=== PATIENT | female | born 1975 | race Caucasian/White ===

== ENCOUNTER 2018-06-22 13:25 | Emergency (ER) | payer BC ==
[~2018-06-22] VITALS: Ht 167.6 cm; Wt 63.6 kg
[~2018-06-22 13:25] MED LIST: ADDERALL10 MG PO; ADDERALL5 MG; AMBIEN CR 12.12.5 MG PO; CALCIUM 600600 M2 PO; CATAPRES 0.1MG0.1 MG PO; CEPHALEXIN500 M1 PO; DESYREL 100MG100 MG PO; EFFEXOR XR37.5 MG/CA PO; KLONOPIN 1MG1 MG PO; LAMICTAL200 MG PO; LEXAPRO 10MG10 MG PO; LEXAPRO20 MG PO; SEROQUEL50 MG PO; TRAZODONE100 MG PO; ULTRAM 50MG TAB50 MG; ULTRAM 50MG TAB50 MG PO; XANAX0.5 MG PO; XANAX2 MG PO; ZYRTEC10 M1 PO
[2018-06-22 13:33] VITALS: TEMP 97.8
[2018-06-22 14:52] LABS: BASO # 0.1 (0.0-0.2); BASO % 1.3 % (0.0-2.0); EOS # 0.3 (0.0-0.7); EOS % 7.1 % (0-4.0); GRAN # 2.3 (1.4-6.5); HEMATOCRIT 40.5 % (37.0-47.0); HEMOGLOBIN 13.3 g/dl (12.5-16.0); LYMPH # 1.3 (1.2-3.4); LYMPH % 29.1 % (20.0-51.0); MEAN CELL VOLUME 88 fl (80.0-100.0); MEAN CORPUSCULAR HEMOGLOBIN 29 pg (27.0-31.0); MEAN CORPUSCULAR HGB CONC 33 g/dl (33.0-37.0); MEAN PLATELET VOLUME 9.2 fl (7.4-10.4); MONO # 0.5 (0.1-0.6); MONO % 10.6 % (1.7-9.3); PLATELET COUNT 225 K/mm3 (130-400); RED BLOOD COUNT 4.58 M/mm3 (4.10-5.30); REDCELL DISTRIBUTION WIDTH-CV 12.6 % (11.5-14.5)
[2018-06-22] MEDS ORDERED: LEXAPRO 10MG10 MG PO (14:58)
[2018-06-22] MEDS ORDERED: NEURONTIN600 MG/TAB PO (14:58)
[2018-06-22] MEDS ORDERED: DESYREL DIVIDO150 M1 PO (14:58)
[2018-06-22] MEDS ORDERED: BIRTH CONTROL (14:59)
[2018-06-22] MEDS ORDERED: ADDERALL20 MG PO (15:00)
[2018-06-22 15:15] LABS: ERYTHROCYTE SEDIMENTATION RATE 1 mm/hr (0-20)
[2018-06-22 16:00] VITALS: BP 115/77; PULSE 86
== END 2018-06-22 16:00 | disposition home or self-care (01) ==
LOC: COL.ER 13:25
PROVIDERS: Physician Assistant
DX: R22.42 Localized swelling, mass and lump, left lower limb (principal); F32.9 Major depressive disorder, single episode, unspecified; Z98.890 Other specified postprocedural states; Z88.2 Allergy status to sulfonamides